=== PATIENT | male | born 1970 ===

== ENCOUNTER 2018-08-25 18:08 | Emergency (ER) | payer OTHER ==
[2018-08-25 18:51] VITALS: RESP 18; TEMP 98.1
--- NOTE | 2018-08-25 19:25 | ED PDOC ---
Arrival/HPI - General Chief Complaint: ENT Problem Time Seen by Provider: 08/25/18 18:51 Historian: Patient - History of Present Illness Narrative History of Present Illness (Text): 08/25/18 19:26 47 yo M presents to the ER c/o pain to the L ear for the past few days with mild decreased in hearing. Otherwise the patient denies any fevers, chills, headache, URI, sore throat, rash. Has no other complaints. Past Medical History - Infectious Disease Hx of Infectious Diseases: None - Psychiatric Hx Substance Use: No - Anesthesia Hx Anesthesia: No Family/Social History Family/Social History: No Known Family HX Smoking Status: Unknown If Ever Smoked Hx Alcohol Use: No Hx Substance Use: No Allergies/Home Meds Allergies/Adverse Reactions: Allergies No Known Allergies Allergy (Verified 08/25/18 18:51) Review of Systems - Review of Systems Constitutional: absent: Fatigue, Fevers ENT: Hearing Changes (+mild decreased hearing to the L ear), Other (+L ear pain). absent: Sore Throat, Rhinorrhea, Sinus Congestion Respiratory: absent: SOB, Cough Skin: absent: Rash, Skin Lesions Neurological: absent: Headache, Dizziness Physical Exam Vital Signs Temp Pulse Resp BP Pulse Ox 08/25/18 18:48 98.1 F 86 18 139/89 97 Temperature: Afebrile Blood Pressure: Normal Pulse: Regular Respiratory Rate: Normal Appearance: Positive for: Well-Appearing, Non-Toxic, Comfortable Pain Distress: None Mental Status: Positive for: Alert and Oriented X 3 - Systems Exam Head: Present: Atraumatic, Normocephalic Pupils: Present: PERRL Extroacular Muscles: Present: EOMI Conjunctiva: Present: Normal Ears: Present: Other (+cerumen impaction to b/l ears) Mouth: Present: Moist Mucous Membranes Neck: Present: Normal Range of Motion. No: Lymphadenopathy Neurological: Present: GCS=15, CN II-XII Intact, Speech Normal Skin: Present: Warm, Dry, Normal Color. No: Rashes Psychiatric: Present: Alert, Oriented x 3, Normal Insight, Normal Concentration Medical Decision Making ED Course and Treatment: 08/25/18 19:24 Advised to follow up with ENT referral in 1-2 days without fail. Advised to take medication as prescribed. Return to the emergency room at any time for any new or worsening symptoms. Patient states he fully agrees with and understands discharge instructions. States that he agrees with the plan and disposition. Verbalized and repeated discharge instructions and plan. I have given the patient opportunity to ask any additional questions. - PA / RESIDENT MANAGER / Resident Statement / has reviewed & agrees with the documentation as recorded. Disposition/Present on Arrival - Present on Arrival Any Indicators Present on Arrival: No History of DVT/PE: No History of Uncontrolled Diabetes: No Urinary Catheter: No History of Decub. Ulcer: No History Surgical Site Infection Following: CABG - Mediastinitis, None - Disposition Have Diagnosis and Disposition been Completed?: Yes Diagnosis: Cerumen impaction Disposition: HOME/ ROUTINE Disposition Time: 19:15 Patient Plan: Discharge Patient Problems: Current Active Problems Problem Status Onset Cerumen impaction Acute Condition: STABLE Discharge Instructions (ExitCare): Ear Wax Impaction (DC) Additional Instructions: Thank you for letting us take care of you today. You were treated for cerumen impaction. The emergency medical care you received today was directed at your acute symptoms. If you were prescribed any medication, please fill it and take as directed. It may take several days for your symptoms to resolve. Return to the Emergency Department if your symptoms worsen, do not improve, or if you have any other problems. Please contact your doctor in 2 days for re-evaluation and follow up / or call one of the physicians/clinics you have been referred to that are listed on the Patient Visit Information form that is included in your discharge packet. Bring any paperwork you were given at discharge with you along with any medications you are taking to your follow up visit. Our treatment cannot replace ongoing medical care by a primary care provider (PCP) outside of the emergency department. Thank you for allowing the [facility] team to be part of your care today. Prescriptions: Carbamide Peroxide [Debrox] 5 drop AU BID #1 each Referrals: FAMILY PROVIDER,NO [Primary Care Provider] - Follow up with primary Nathan Chen DO [[facility]] - Follow up with primary
[2018-08-25 19:36] VITALS: BP 140/87; PULSE 84; O2SAT 98
== END 2018-08-25 19:49 | disposition home or self-care (01) ==
LOC: ED 18:08
DX: H61.23 Impacted cerumen, bilateral (principal)